=== PATIENT | female | born 1975 ===

== ENCOUNTER 2020-12-06 09:36 | Day surgery (SDC) | payer OTHER ==
[~2020-12-06] VITALS: Ht 162.6 cm; Wt 80.2 kg
[~2020-12-06 09:36] MED LIST: NO HOME MEDICATIONS; NORFLEX 10100 MG/TAB PO; PERCOCET 325 MG1 TA2 PO; PRENATAL1 TA1 PO; ZOFRAN ODT4 MG PO
[2020-12-06 10:11] VITALS: BP 140/103; PULSE 85; TEMP 98
[2020-12-06] MEDS ORDERED: NATURAL IRON65 MG PO (10:24)
[2020-12-06] MEDS ORDERED: TYLENOL 500MG500 MG PO (10:25)
[2020-12-06] MEDS ORDERED: EXCEDRIN1 TAB PO (10:25)
[2020-12-06 11:10] VITALS: BP 156/96; PULSE 78; TEMP 97.3
--- NOTE | 2020-12-06 11:10 | NUR ---
1110 - Patient arrives back to [facility] [place] alert, denies pain or nausea. Patient ambulates from cart to chair with standby assist and without any complications. Paitent monitor applied, vitals stable. Patient given soda, denies wanting any food. 1130 - Patient tolerating soda well and without any nausea. Vitals stable. 1145 - Dismissal instructions gone over with patient. Paitent voices understanding and all questions answered. 1155 - Patient discharged to private vehicle her mother is driving at patient enterance via wheelchair without any complications. Patient leaves thanking staff for services.
[2020-12-06 11:25] VITALS: BP 152/99; PULSE 65
== END 2020-12-06 11:55 | disposition home or self-care (01) ==
LOC: SDCO 09:36
DX: Z12.11 Encounter for screening for malignant neoplasm of colon (principal); K57.30 Diverticulosis of large intestine without perforation or abscess without bleeding; D64.9 Anemia, unspecified; E66.9 Obesity, unspecified; D50.9 Iron deficiency anemia, unspecified; Z87.891 Personal history of nicotine dependence; Z80.0 Family history of malignant neoplasm of digestive organs; Z79.899 Other long term (current) drug therapy; Z20.822 Contact with and (suspected) exposure to COVID-19
CPT/HCPCS: J7030

== ENCOUNTER → 2021-06-04 | Outpatient (CLI) | payer OTHER ==
[~2021-06-04] MED LIST changes: +EXCEDRIN1 TAB PO; +NATURAL IRON65 MG PO; +TYLENOL 500MG500 MG PO
== END ==
LOC: MC.RAD 15:49
DX: Z12.31 Encounter for screening mammogram for malignant neoplasm of breast (principal); N63.10 Unspecified lump in the right breast, unspecified quadrant

== ENCOUNTER → 2021-06-07 | Outpatient (CLI) | payer OTHER | LOC: MC.RAD 14:47 | DX: N63.10 Unspecified lump in the right breast, unspecified quadrant (principal) ==

== ENCOUNTER 2023-12-20 14:20 | Emergency (ER) | payer OTHER ==
[~2023-12-20] VITALS: Ht 160 cm; Wt 81.8 kg
[2023-12-20 14:29] VITALS: TEMP 97.7
[2023-12-20] MEDS ORDERED: Ondansetron 4 MG/2 ML VIAL IV ONE (15:45)
[2023-12-20] MEDS ORDERED: NS 1,000 ML IV ONE (15:45)
[2023-12-20 16:08] LABS: BASO # 0.1 K/mm3 (0.0-0.2); BASO % 0.7 % (0.0-2.0); EOS % 0.3 % (0.0-4.0); GRAN # 8.7 K/mm3 (1.4-6.5); GRAN % 81.3 % (42.2-75.2); HEMATOCRIT 43.9 % (37.0-47.0); HEMOGLOBIN 15.5 g/dl (12.5-16.0); LYMPH # 1.4 K/mm3 (1.2-3.4); LYMPH % 13.3 % (20.0-51.0); MEAN CELL VOLUME 88 fl (80.0-100.0); MEAN CORPUSCULAR HEMOGLOBIN 31 pg (27-31); MEAN CORPUSCULAR HGB CONC 35 g/dl (33.0-37.0); MEAN PLATELET VOLUME 10.3 fl (7.4-10.4); MONO # 0.4 K/mm3 (0.1-0.6); PLATELET COUNT 174 K/mm3 (130-400)
[2023-12-20 16:11] LABS: ALBUMIN 4.7 g/dL (3.5-5.0); BILIRUBIN,TOTAL 0.5 mg/dL (0.2-1.2); CALCIUM 10.6 mg/dL (8.4-10.2); CREATININE, serum 0.85 mg/dL (0.57-1.11); POTASSIUM 4.2 mEq/L (3.5-4.5); TOTAL PROTEIN 8.4 g/dl (6.2-8.1)
[2023-12-20] MEDS ORDERED: droPERidol 2.5 MG/ML 2 ML VIAL IV ONE (16:30)
[2023-12-20] MEDS ORDERED: ZOFRAN ODT4 MG PO (17:51)
[2023-12-20 18:20] VITALS: BP 133/93; PULSE 76
== END 2023-12-20 18:20 | disposition home or self-care (01) ==
LOC: COL.ER 14:20
PROVIDERS: Physician Assistant
DX: R11.2 Nausea with vomiting, unspecified (principal)
CPT/HCPCS: J1790; J2405; J7030